=== PATIENT | male | born 1955 | race Hispanic/Latino ===

== ENCOUNTER 2017-03-17 10:54 | Observation (INO) | payer OTHER ==
[~2017-03-17] VITALS: Ht 167.6 cm; Wt 100.0 kg
[~2017-03-17 10:54] MED LIST: AMLO10TA2 PO; FURO40TA5 PO; LISI40TA4 PO; METO-409 PO; POTA20TA82 PO; SPIR100T3 PO
[2017-03-17 13:04] LABS: BASOPHILS % (AUTO) 0.7 % (0.0-5.0); EOSINOPHILS % (AUTO) 2.3 % (0.0-8.0); HEMATOCRIT 25.1 % (42-54); LYMPHOCYTES % (AUTO) 8.6 % (21.0-51.0); MEAN CORPUSCULAR HEMOGLOBIN 34.6 pg (27.0-33.0); MEAN CORPUSCULAR HGB CONC 35.5 g/dL (32.0-36.0); MEAN CORPUSCULAR VOLUME 97.6 fL (79-99); MONOCYTES % (AUTO) 9.6 % (3.0-13.0); NEUTROPHILS % (AUTO) 78.8 % (40.0-77.0); NUCLEATED RED BLOOD CELLS 0.1 % (0.0-0.19); PLATELET COUNT (AUTO) 178 K/uL (130-400); RED BLOOD CELL COUNT(AUTO) 2.57 MIL/uL (4.50-6.20); RED CELL DISTRIBUTION WIDTH 14.2 % (11.0-15.5); WHITE BLOOD COUNT (AUTO) 10.5 K/uL (4.8-10.8)
[2017-03-17 13:33] LABS: B-TYPE NATRIURETIC PEPTIDE 198 pg/mL (0-100)
[2017-03-17 13:34] LABS: POTASSIUM 4.4 mmol/L (3.5-5.1)
[2017-03-17 13:35] LABS: CREATININE 2.1 mg/dL (0.5-1.5)
[2017-03-17 13:37] LABS: ALBUMIN 0.8 g/dL (3.5-5.0)
[2017-03-17 13:38] LABS: BILIRUBIN,TOTAL 0.3 mg/dL (0.2-1.0); CREATINE KINASE MB 1.4 ng/mL (0.5-3.6); TOTAL PROTEIN, SERUM 4.7 g/dL (6.0-8.3)
[2017-03-17] MEDS ORDERED: ACETAMINOPHEN-CODEINE 300/30MG TAB PO PRN ×2 (15:00)
[2017-03-17] MEDS ORDERED: HYDRALAZINE HCL 20 MG/ML VIAL IV PRN (15:00)
[2017-03-17] MEDS ORDERED: LACTULOSE 20 GM/30 ML UDCUP PO PRN (15:00)
[2017-03-17] MEDS ORDERED: GUAIFENESIN-DM 200/20 MG 10 ML PO PRN (15:00)
[2017-03-17] MEDS ORDERED: ONDANSETRON HCL 4 MG/2 ML VIAL IV PRN (15:00)
[2017-03-17] MEDS ORDERED: MAG HYDROX/AL HYDROX/SIMETH ES 30 ML SUSP UDCUP PO PRN (15:00)
[2017-03-17] MEDS ORDERED: NITROGLYCERIN 0.4 MG SL TAB SL PRN (15:00)
[2017-03-17] MEDS ORDERED: MORPHINE SULFATE 4 MG/1ML SYG IV PRN (15:00)
[2017-03-17] MEDS ORDERED: MORPHINE SULFATE 2 MG/ML 1ML SYG IV PRN (15:00)
[2017-03-17] MEDS ORDERED: ACETAMINOPHEN 325 MG TAB PO PRN ×2 (15:00)
[2017-03-17] MEDS ORDERED: FUROSEMIDE 10 MG/ML 4ML VIAL ONE (15:33)
[2017-03-17] MEDS ORDERED: NITROGLYCERIN 1GM/1 INCH PACKET TD ONE (15:34)
[2017-03-17] MEDS ORDERED: FUROSEMIDE 10 MG/ML 2ML VIAL ONE (15:34)
[2017-03-17 20:00] VITALS: BP 182/87
[2017-03-17] MEDS: FUROSEMIDE 10 MG/ML 4ML VIAL IVP SCH (21:41)
[2017-03-18] VITALS (8 sets, daily range): BP systolic 140–182; BP diastolic 65–93
[2017-03-18 04:29] LABS: HEMATOCRIT 25.7 % (42-54); MEAN CORPUSCULAR HEMOGLOBIN 33.7 pg (27.0-33.0); MEAN CORPUSCULAR HGB CONC 34.9 g/dL (32.0-36.0); MEAN CORPUSCULAR VOLUME 96.7 fL (79-99); PLATELET COUNT (AUTO) 177 K/uL (130-400); RED BLOOD CELL COUNT(AUTO) 2.66 MIL/uL (4.50-6.20); RED CELL DISTRIBUTION WIDTH 14.1 % (11.0-15.5); WHITE BLOOD COUNT (AUTO) 9.8 K/uL (4.8-10.8)
[2017-03-18 05:15] LABS: CREATININE 2.1 mg/dL (0.5-1.5); POTASSIUM 4.1 mmol/L (3.5-5.1)
[2017-03-18] MEDS: FUROSEMIDE 10 MG/ML 4ML VIAL IVP SCH ×2 (09:44→22:25)
[2017-03-18] MEDS: PANTOPRAZOLE SODIUM 40 MG TABLET.DR PO SCH (09:44)
[2017-03-18] MEDS: SPIRONOLACTONE 25 MG TAB PO SCH ×2 (11:56→22:25)
[2017-03-19 04:00] VITALS: BP 160/81
[2017-03-19 07:24] LABS: POTASSIUM 4.1 mmol/L (3.5-5.1)
[2017-03-19 08:00] VITALS: BP 171/75
[2017-03-19] MEDS ORDERED: POTASSIUM CHLORIDE 20 MEQ ERTAB PO SCH (09:00)
[2017-03-19] MEDS ORDERED: LISINOPRIL 40 MG TABLET PO SCH (09:00)
[2017-03-19] MEDS ORDERED: AMLODIPINE BESYLATE 5 MG TAB PO SCH (09:00)
[2017-03-19] MEDS: PANTOPRAZOLE SODIUM 40 MG TABLET.DR PO SCH (10:09)
[2017-03-19] MEDS: FUROSEMIDE 10 MG/ML 4ML VIAL IVP SCH (10:09)
[2017-03-19] MEDS: SPIRONOLACTONE 25 MG TAB PO SCH (10:10)
[2017-03-19 12:00] VITALS: BP 176/85
== END 2017-03-19 13:45 | disposition home or self-care (01) ==
LOC: EDH 10:54 → EDHIP 14:45 → 3CH 19:56
PROVIDERS: ADMIT Internal Medicine; ATTEND Internal Medicine
DX: R60.1 Generalized edema (principal); I12.9 Hypertensive chronic kidney disease with stage 1 through stage 4 chronic kidney disease, or unspecified chronic kidney disease; E11.22 Type 2 diabetes mellitus with diabetic chronic kidney disease; K70.30 Alcoholic cirrhosis of liver without ascites; N18.3 Chronic kidney disease, stage 3 (moderate); F10.21 Alcohol dependence, in remission; Z87.891 Personal history of nicotine dependence; Z90.49 Acquired absence of other specified parts of digestive tract; Z79.899 Other long term (current) drug therapy
CPT/HCPCS: 36415 ×3; 71045; 74018; 76700; 80048 ×2; 80053; 82550; 82553; 82948 ×6; 83880; 84484; 85025; 85027; 93005; 96374; 96375; 96376 ×2; 99285; A4510; G0378 ×47; J0360; J1940 ×6

== ENCOUNTER 2017-03-20 17:57 | Emergency (ER) | payer OTHER ==
[~2017-03-20 17:57] MED LIST changes: -METO-409 PO
[2017-03-20] MEDS ORDERED: ACETAMINOPHEN 325 MG TAB ONE (18:51)
[2017-03-20 19:11] LABS: BASOPHILS % (AUTO) 0.6 % (0.0-5.0); HEMATOCRIT 28.4 % (42-54); LYMPHOCYTES % (AUTO) 3.8 % (21.0-51.0); MEAN CORPUSCULAR HEMOGLOBIN 33.8 pg (27.0-33.0); MEAN CORPUSCULAR HGB CONC 34.6 g/dL (32.0-36.0); MEAN CORPUSCULAR VOLUME 97.7 fL (79-99); NEUTROPHILS % (AUTO) 82.6 % (40.0-77.0); PLATELET COUNT (AUTO) 172 K/uL (130-400); RED BLOOD CELL COUNT(AUTO) 2.91 MIL/uL (4.50-6.20); RED CELL DISTRIBUTION WIDTH 14.6 % (11.0-15.5); WHITE BLOOD COUNT (AUTO) 5.9 K/uL (4.8-10.8)
[2017-03-20 19:24] LABS: CREATININE 2.4 mg/dL (0.5-1.5); POTASSIUM 4.3 mmol/L (3.5-5.1)
[2017-03-20 19:25] LABS: INR 1.06 (0.85-1.15); PARTIAL THROMBOPLASTIN TIME 28.1 SEC (26.3-35.5); PROTHROMBIN TIME 11.1 SEC (9.6-11.6)
[2017-03-20 19:37] LABS: ALBUMIN 0.9 g/dL (3.5-5.0); BILIRUBIN,TOTAL 0.4 mg/dL (0.2-1.0); CREATINE KINASE MB 0.5 ng/mL (0.5-3.6); TOTAL PROTEIN, SERUM 5.2 g/dL (6.0-8.3)
== END 2017-03-20 22:08 | disposition home or self-care (01) ==
LOC: EDH 17:57
DX: S09.8XXA Other specified injuries of head, initial encounter (principal); E87.70 Fluid overload, unspecified; E11.9 Type 2 diabetes mellitus without complications; I10 Essential (primary) hypertension; R50.9 Fever, unspecified; Z87.891 Personal history of nicotine dependence; W01.0XXA Fall on same level from slipping, tripping and stumbling without subsequent striking against object, initial encounter; Y93.89 Activity, other specified; Y92.89 Other specified places as the place of occurrence of the external cause; Y99.8 Other external cause status
CPT/HCPCS: 36415; 70450; 71045; 80053; 82550; 82553; 83605; 84484; 85025; 85610; 85730; 87040; 87804; 93005